=== PATIENT | female | born 1985 | race African-American/Black ===

== ENCOUNTER 2022-02-02 07:30 | Outpatient (RCR) | payer OTHER, SELFPAY ==
--- NOTE | 2021-11-26 16:11 | PT.OIE ---
Current Diagnoses Pain in right knee (11/26/21) Pain in unspecified knee (11/26/21) Visit Care Team Role Provider Type Willa Starr MD Attending Provider Non-Staff Family Provider Primary Care Provider Referring Provider Specialty: Medical Address: [address] [place] [address], [facility] Email: Physical Therapy Initial Evaluation PT-OP-A Visit Information Start: 11/17/21 08:14 Freq: Status: Active Protocol: Document 11/26/21 13:02 AMB (Rec: 11/26/21 13:46 AMB [id number]) Out-Patient Physical Therapy Visit Information Visit Information Visit Type Initial Evaluation Visit Start Time 13:00 Visit Stop Time 13:45 Total Visit Minutes 45 Visit Number 1 PT-OP-B Current Condition Start: 11/17/21 08:14 Freq: Status: Active Protocol: Document 11/26/21 13:02 AMB (Rec: 11/26/21 13:46 AMB [id number]) Current Condition History of Current Condition Onset Date August 2021 History of Current Condition Pain with Running, stairs, squats after a skiing accident where she fell in August Feels like it could give out, swelling - inside of the knee. Has felt catching in the knee. PT-OP-C Subjective Start: 11/17/21 08:14 Freq: Status: Active Protocol: Document 11/26/21 13:00 AMB (Rec: 11/26/21 16:06 AMB [id number]) Patient Questionnaires Lower Extremity Functional Scale LEFS Score 70 LEFS Impairment 1 to 19% Impaired (Score 63-79 ) PT-OP-J Posture/Palpation/Skin Start: 11/17/21 08:14 Freq: Status: Active Protocol: Document 11/26/21 13:00 AMB (Rec: 11/26/21 16:08 AMB [id number]) Palpation Assessment Location One Palpation Location R knee Palpation Findings Edema,Tenderness Palpation Details No tenderness laterally over IT band or centrally over patellar tendon, all tenderness at medial tibiofemoral joint line with mild swelling noticable. PT-OP-K Range of Motion Start: 11/17/21 08:14 Freq: Status: Active Protocol: Document 11/26/21 13:00 AMB (Rec: 11/26/21 16:06 AMB [id number]) Knee Goniometric Range of Motion Knee Right Knee ROM WFL Yes Patient Position Supine Comments no pain with OP into full flexion or extension PT-OP-L Special Tests Start: 11/17/21 08:14 Freq: Status: Active Protocol: Document 11/26/21 13:00 AMB (Rec: 11/26/21 16:06 AMB [id number]) Special Tests Knee Special Tests Rehan Test Comments mild pain and pt subjective feel of clicking Patellar Grind Test Test Results - Posterior Draw Test Results - Anterior Draw Test Results - PT-OP-M Strength Start: 11/17/21 08:14 Freq: Status: Active Protocol: Document 11/26/21 13:00 AMB (Rec: 11/26/21 16:06 AMB [id number]) Hip Strength Hip Manual Muscle Testing Right Flexion (L2) 4 Good Extension (S1) 5 Normal Abduction 4 Good Knee Strength Knee Manual Muscle Testing Right Flexion (S2) 5 Normal Extension (L3) 4 Good PT-OP-Q Treatments Start: 11/17/21 08:14 Freq: Status: Active Protocol: Document 11/26/21 13:00 AMB (Rec: 11/26/21 16:08 AMB [id number]) Therapeutic Exercises Supine Exercises SLR Side right Reps/Minutes 10 Sidelying Exercises hip abduction Side right Reps/Minutes 10 Standing Exercises mini squat Reps/Minutes 10 Comments cues for knee alignment PT-OP-T Assessment and Plan Start: 11/17/21 08:14 Freq: Status: Active Protocol: Document 11/26/21 13:00 AMB (Rec: 11/26/21 16:06 AMB [id number]) Physical Therapy Assessment Rehab Potential Rehabilitation Potential Good Evaluation Complexity Number of Personal Factors/Comorbidities 0 Number of Body Systems Impaired 3 Clinical Presentation at Evaluation Stable Impairments Impairments Functional Activities,Pain, Strength Goals Three Impairment HEP Short Term Goal (STG) Esme will be independent and consistent with a HEP to reduce her knee pain. STG Duration 4 weeks Jail Goal (LTG) Esme will return to her gym workout of running and squatting with resistance without an increase in knee pain. LTG Duration 8 weeks Two Impairment Pain Short Term Goal (STG) Esme will ascend and descend a flight of stairs without knee pain. STG Duration 4 weeks Jail Goal (LTG) Esme will run for 1 mile with knee pain of 2/10 or less over smooth terrain. LTG Duration 8 weeks One Impairment Strength Short Term Goal (STG) Esme will improve her knee strength to 5/5 in both flexion and extension. STG Duration 4 weeks Assessment Summary Assessment Esme attends physical therapy with R medial knee pain s/p ski injury 3 months ago. It was initially swollen , but has slowly been improving. She is still unable to workout in her usual manner (avoiding resistance/ squats/running), and has pain with stairs. She showed weakness in hip flexion, abduction and knee extension. She also had a mildly positive Rehan test. She would benefit from further physical therapy for instruction in appropriate knee stabilization (did ask pt stop performing resistive open chain quad strengthening at the gym for now), and to help manage pain/swelling. 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 Physical Therapy Plan Frequency and Duration Frequency of Treatment 2x/Week Duration of Treatment 3 months Plan of Care Start Date 11/26/21 Plan of Care End Date 02/24/22 Therapeutic Interventions Therapeutic Interventions Aquatic Therapy,Gait Training, Home Exercise Program,Joint Mobilizations,Manual Therapy, Neuromuscular Re-education, Self-Care/Home Management, Therapeutic Activities, Therapeutic Exercises Modalities Cold Pack/Ice Massage,Electric Stimulation,Hot Packs Next Visit Focus/Plan Next Note Type Treatment Note Next Visit Plan How did pt tolerate k-tape? Reassess SLR, abduction, mini squat. Progress closed chain strengthening at hip/knee.
--- NOTE | 2021-11-26 16:11 | PT.OPPOC ---
Physical, Occupational & Speech Therapy At [facility] Current Diagnoses Pain in right knee (11/26/21) Pain in unspecified knee (11/26/21) Visit Care Team Role Provider Type Willa Starr MD Attending Provider Non-Staff Family Provider Primary Care Provider Referring Provider Specialty: Medical Address: [address] [place] [address], [id number] Email: Plan Of Care PT-OP-T Assessment and Plan Start: 11/17/21 08:14 Freq: Status: Active Protocol: Document 11/26/21 13:00 AMB (Rec: 11/26/21 16:06 AMB [id number]) Physical Therapy Assessment Rehab Potential Rehabilitation Potential Good Evaluation Complexity Number of Personal Factors/Comorbidities 0 Number of Body Systems Impaired 3 Clinical Presentation at Evaluation Stable Impairments Impairments Functional Activities,Pain, Strength Goals Three Impairment HEP Short Term Goal (STG) Esme will be independent and consistent with a HEP to reduce her knee pain. STG Duration 4 weeks Blacking Machine Operator Goal (LTG) Esme will return to her gym workout of running and squatting with resistance without an increase in knee pain. LTG Duration 8 weeks Two Impairment Pain Short Term Goal (STG) Esme will ascend and descend a flight of stairs without knee pain. STG Duration 4 weeks Blacking Machine Operator Goal (LTG) Esme will run for 1 mile with knee pain of 2/10 or less over smooth terrain. LTG Duration 8 weeks One Impairment Strength Short Term Goal (STG) Esme will improve her knee strength to 5/5 in both flexion and extension. STG Duration 4 weeks Assessment Summary Assessment Esme attends physical therapy with R medial knee pain s/p ski injury 3 months ago. It was initially swollen , but has slowly been improving. She is still unable to workout in her usual manner (avoiding resistance/ squats/running), and has pain with stairs. She showed weakness in hip flexion, abduction and knee extension. She also had a mildly positive Rehan test. She would benefit from further physical therapy for instruction in appropriate knee stabilization (did ask pt stop performing resistive open chain quad strengthening at the gym for now), and to help manage pain/swelling. 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 Physical Therapy Plan Frequency and Duration Frequency of Treatment 2x/Week Duration of Treatment 3 months Plan of Care Start Date 11/26/21 Plan of Care End Date 02/24/22 Therapeutic Interventions Therapeutic Interventions Aquatic Therapy,Gait Training, Home Exercise Program,Joint Mobilizations,Manual Therapy, Neuromuscular Re-education, Self-Care/Home Management, Therapeutic Activities, Therapeutic Exercises Modalities Cold Pack/Ice Massage,Electric Stimulation,Hot Packs Next Visit Focus/Plan Next Note Type Treatment Note Next Visit Plan How did pt tolerate k-tape? Reassess SLR, abduction, mini squat. Progress closed chain strengthening at hip/knee. Plan of Care Dates Plan of Care Start Date 11/26/21 Plan of Care End Date 02/24/22 Electronically Signed by: Ibis Watt, PT 11/26/21 1783 Please Sign and Return: I have reviewed this Plan of Care and certify that the skilled therapy services above are required to meet the patient?s needs. Physician Signature Date Printed Name and Credentials Clinical Instructor Signature Printed Name and Credentials
--- NOTE | 2021-11-29 16:03 | PT.OTN ---
Current Diagnoses Pain in right knee (11/29/21) Pain in unspecified knee (11/29/21) Physical Therapy Treatment Note PT-OP-A Visit Information Start: 11/17/21 08:14 Freq: Status: Active Protocol: Document 11/29/21 15:17 MA (Rec: 11/29/21 16:03 MA [id number]) Out-Patient Physical Therapy Visit Information Visit Information Visit Type Treatment Note Visit Start Time 15:15 Visit Number 2 Number of DIRECTOR OF RESEARCH AND DEVELOPMENT Visits 1 PT-OP-B Current Condition Start: 11/17/21 08:14 Freq: Status: Active Protocol: Document 11/26/21 13:02 AMB (Rec: 11/26/21 13:46 AMB [id number]) Current Condition History of Current Condition Onset Date August 2021 History of Current Condition Pain with Running, stairs, squats after a skiing accident where she fell in August Feels like it could give out, swelling - inside of the knee. Has felt catching in the knee. PT-OP-C Subjective Start: 11/17/21 08:14 Freq: Status: Active Protocol: Document 11/29/21 15:17 MA (Rec: 11/29/21 16:03 MA [id number]) OP-PT Subjective Patient Comments Patient Comments Pt feels the tape helped a lot last session. PT-OP-J Posture/Palpation/Skin Start: 11/17/21 08:14 Freq: Status: Active Protocol: Document 11/26/21 13:00 AMB (Rec: 11/26/21 16:08 AMB [id number]) Palpation Assessment Location One Palpation Location R knee Palpation Findings Edema,Tenderness Palpation Details No tenderness laterally over IT band or centrally over patellar tendon, all tenderness at medial tibiofemoral joint line with mild swelling noticable. PT-OP-K Range of Motion Start: 11/17/21 08:14 Freq: Status: Active Protocol: Document 11/26/21 13:00 AMB (Rec: 11/26/21 16:06 AMB [id number]) Knee Goniometric Range of Motion Knee Right Knee ROM WFL Yes Patient Position Supine Comments no pain with OP into full flexion or extension PT-OP-L Special Tests Start: 11/17/21 08:14 Freq: Status: Active Protocol: Document 11/26/21 13:00 AMB (Rec: 11/26/21 16:06 AMB [id number]) Special Tests Knee Special Tests Rehan Test Comments mild pain and pt subjective feel of clicking Patellar Grind Test Test Results - Posterior Draw Test Results - Anterior Draw Test Results - PT-OP-M Strength Start: 11/17/21 08:14 Freq: Status: Active Protocol: Document 11/26/21 13:00 AMB (Rec: 11/26/21 16:06 AMB [id number]) Hip Strength Hip Manual Muscle Testing Right Flexion (L2) 4 Good Extension (S1) 5 Normal Abduction 4 Good Knee Strength Knee Manual Muscle Testing Right Flexion (S2) 5 Normal Extension (L3) 4 Good PT-OP-Q Treatments Start: 11/17/21 08:14 Freq: Status: Active Protocol: Document 11/29/21 15:17 MA (Rec: 11/29/21 16:03 MA [id number]) Cardio Equipment Bicycle (Upright) Duration (Minutes) 5 Resistance 5 Seat Position 5 Therapeutic Exercises Supine Exercises Bridges Side bilateral Reps/Minutes 2x 12x5SH Comments added to HEP SLR Side bilateral Reps/Minutes 2x12 Sidelying Exercises Clamshell Sidelying Exercise Name hip ER Side bilateral Reps/Minutes 2x12 Comments added to HEP hip abduction Side bilateral Reps/Minutes 2x12 Standing Exercises Stretch Standing Exercise Name gastroc stretch in staggered stance Side bilateral Reps/Minutes x30 ea mini squat Reps/Minutes 10 Comments cues for knee alignment Manual Therapy Treatment Taping R Knee Body Location R knee Treatment Focus stability Type of Tape ktape Skin Inspection intact Comments 2 I strips medial and lateral starting from tib tuberosity PT-OP-T Assessment and Plan Start: 11/17/21 08:14 Freq: Status: Active Protocol: Document 11/29/21 15:17 MA (Rec: 11/29/21 16:03 MA [id number]) Physical Therapy Assessment Goals Three Impairment HEP Short Term Goal (STG) Esme will be independent and consistent with a HEP to reduce her knee pain. STG Duration 4 weeks Usp Goal (LTG) Esme will return to her gym workout of running and squatting with resistance without an increase in knee pain. LTG Duration 8 weeks Two Impairment Pain Short Term Goal (STG) Esme will ascend and descend a flight of stairs without knee pain. STG Duration 4 weeks Usp Goal (LTG) Esme will run for 1 mile with knee pain of 2/10 or less over smooth terrain. LTG Duration 8 weeks One Impairment Strength Short Term Goal (STG) Esme will improve her knee strength to 5/5 in both flexion and extension. STG Duration 4 weeks Assessment Summary Assessment Esme reports feeling more stable over the weekend with Ktape donned. Retaped pt and added in bridges and hip ER ( clamshells) to HEP. Pt shows weakness through benito hip abd and ER and requires rest breaks after 5-8 reps of exercises due to fatigue. She has no swelling today around medial knee. Educated pt on ice massage to decrease swelling and pain when at home . Physical Therapy Plan Frequency and Duration Frequency of Treatment 2x/Week Duration of Treatment 3 months Plan of Care Start Date 11/26/21 Plan of Care End Date 02/24/22 Therapeutic Interventions Therapeutic Interventions Aquatic Therapy,Gait Training, Home Exercise Program,Joint Mobilizations,Manual Therapy, Neuromuscular Re-education, Self-Care/Home Management, Therapeutic Activities, Therapeutic Exercises Modalities Cold Pack/Ice Massage,Electric Stimulation,Hot Packs Next Visit Focus/Plan Next Note Type Treatment Note Next Visit Plan Continue with ktape. Reivew HEP: SLR, abduction, clamshells, bridges, mini squat. Progress closed chain strengthening at hip/knee.
--- NOTE | 2021-12-02 14:57 | PT-OP ANOTE ---
Called patient at 3pm for her scheduled apt time at 2:30 and she was on her way to the appt, pt stated she had her appt time written down as 3:15. Confirmed appointment times for following appointments with patient and all future times were correct.
--- NOTE | 2021-12-06 16:02 | PT.OTN ---
Current Diagnoses Pain in right knee (12/06/21) Pain in unspecified knee (12/06/21) Physical Therapy Treatment Note PT-OP-A Visit Information Start: 11/17/21 08:14 Freq: Status: Active Protocol: Document 12/06/21 15:21 MA (Rec: 12/06/21 16:01 MA [id number]) Out-Patient Physical Therapy Visit Information Visit Information Visit Type Treatment Note Visit Start Time 15:20 Visit Stop Time 16:00 Total Visit Minutes 40 Visit Number 3 Number of STEWARD RACETRACK Visits 2 PT-OP-B Current Condition Start: 11/17/21 08:14 Freq: Status: Active Protocol: Document 11/26/21 13:02 AMB (Rec: 11/26/21 13:46 AMB [id number]) Current Condition History of Current Condition Onset Date August 2021 History of Current Condition Pain with Running, stairs, squats after a skiing accident where she fell in August Feels like it could give out, swelling - inside of the knee. Has felt catching in the knee. PT-OP-C Subjective Start: 11/17/21 08:14 Freq: Status: Active Protocol: Document 12/06/21 15:21 MA (Rec: 12/06/21 16:01 MA [id number]) OP-PT Subjective Patient Comments Patient Comments Pt has been having nerve pain down lateral RLE. PT-OP-J Posture/Palpation/Skin Start: 11/17/21 08:14 Freq: Status: Active Protocol: Document 11/26/21 13:00 AMB (Rec: 11/26/21 16:08 AMB [id number]) Palpation Assessment Location One Palpation Location R knee Palpation Findings Edema,Tenderness Palpation Details No tenderness laterally over IT band or centrally over patellar tendon, all tenderness at medial tibiofemoral joint line with mild swelling noticable. PT-OP-K Range of Motion Start: 11/17/21 08:14 Freq: Status: Active Protocol: Document 11/26/21 13:00 AMB (Rec: 11/26/21 16:06 AMB [id number]) Knee Goniometric Range of Motion Knee Right Knee ROM WFL Yes Patient Position Supine Comments no pain with OP into full flexion or extension PT-OP-L Special Tests Start: 11/17/21 08:14 Freq: Status: Active Protocol: Document 11/26/21 13:00 AMB (Rec: 11/26/21 16:06 AMB [id number]) Special Tests Knee Special Tests Rehan Test Comments mild pain and pt subjective feel of clicking Patellar Grind Test Test Results - Posterior Draw Test Results - Anterior Draw Test Results - PT-OP-M Strength Start: 11/17/21 08:14 Freq: Status: Active Protocol: Document 11/26/21 13:00 AMB (Rec: 11/26/21 16:06 AMB [id number]) Hip Strength Hip Manual Muscle Testing Right Flexion (L2) 4 Good Extension (S1) 5 Normal Abduction 4 Good Knee Strength Knee Manual Muscle Testing Right Flexion (S2) 5 Normal Extension (L3) 4 Good PT-OP-Q Treatments Start: 11/17/21 08:14 Freq: Status: Active Protocol: Document 12/06/21 15:21 MA (Rec: 12/06/21 16:01 MA [id number]) Cardio Equipment Bicycle (Upright) Duration (Minutes) 5 Resistance 5 Seat Position 5 Therapeutic Exercises Supine Exercises Stretch Supine Exercise Name Supine and seated Side bilateral Reps/Minutes x30 sec ea Comments pain felt when supine, no pain in seated Bridges Side bilateral Reps/Minutes 12x5SH Comments added to HEP SLR Side bilateral Reps/Minutes 2x12 Sidelying Exercises Clamshell Sidelying Exercise Name hip ER Side bilateral Reps/Minutes 2x12 Comments added to HEP hip abduction Side bilateral Reps/Minutes 2x12 Standing Exercises mini squat Reps/Minutes 10 Comments cues for knee alignment Manual Therapy Treatment Taping R Knee Body Location R knee Treatment Focus stability Type of Tape ktape Skin Inspection intact Comments 2 I strips medial and lateral starting from tib tuberosity - 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 PT-OP-R Modalities Start: 11/17/21 08:14 Freq: Status: Active Protocol: Document 12/06/21 15:21 MA (Rec: 12/06/21 16:02 MA [id number]) Hot Pack/Cold Pack Treatment Ice Massage Location R medial Knee Patient Position Supine Treatment Duration (minutes) 5 Patient Tolerance Good Comments Instructed pt to perform at home as needed for swelling PT-OP-T Assessment and Plan Start: 11/17/21 08:14 Freq: Status: Active Protocol: Document 12/06/21 15:21 MA (Rec: 12/06/21 16:01 MA [id number]) Physical Therapy Assessment Goals Three Impairment HEP Short Term Goal (STG) Esme will be independent and consistent with a HEP to reduce her knee pain. STG Duration 4 weeks [facility] Goal (LTG) Esme will return to her gym workout of running and squatting with resistance without an increase in knee pain. LTG Duration 8 weeks Two Impairment Pain Short Term Goal (STG) Esme will ascend and descend a flight of stairs without knee pain. STG Duration 4 weeks Ciaio Counter Molder Goal (LTG) Esme will run for 1 mile with knee pain of 2/10 or less over smooth terrain. LTG Duration 8 weeks One Impairment Strength Short Term Goal (STG) Esme will improve her knee strength to 5/5 in both flexion and extension. STG Duration 4 weeks Assessment Summary Assessment Esme continues to fatigue during SL hip abd and ER exercises and requires cues for proper form today. Added in piriformis stretch as pt has been having sciatic pain after hip strengthening exercises. 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 Physical Therapy Plan Frequency and Duration Frequency of Treatment 2x/Week Duration of Treatment 3 months Plan of Care Start Date 11/26/21 Plan of Care End Date 02/24/22 Therapeutic Interventions Therapeutic Interventions Aquatic Therapy,Gait Training, Home Exercise Program,Joint Mobilizations,Manual Therapy, Neuromuscular Re-education, Self-Care/Home Management, Therapeutic Activities, Therapeutic Exercises Modalities Cold Pack/Ice Massage,Electric Stimulation,Hot Packs Next Visit Focus/Plan Next Note Type Treatment Note Next Visit Plan Assess RLE nerve pain after new HEP stretch. Continue with ktape. Reivew HEP: SLR, abduction, clamshells, bridges , mini squat, piriformis stretch. Progress closed chain strengthening at hip/ knee.
--- NOTE | 2021-12-09 14:17 | PT.OTN ---
Current Diagnoses Pain in right knee (12/09/21) Pain in unspecified knee (12/09/21) Physical Therapy Treatment Note PT-OP-A Visit Information Start: 11/17/21 08:14 Freq: Status: Active Protocol: Document 12/09/21 13:45 AMB (Rec: 12/10/21 14:17 AMB [id number]) Out-Patient Physical Therapy Visit Information Visit Information Visit Type Treatment Note Visit Start Time 13:45 Visit Stop Time 14:30 Total Visit Minutes 45 Visit Number 4 PT-OP-B Current Condition Start: 11/17/21 08:14 Freq: Status: Active Protocol: Document 11/26/21 13:02 AMB (Rec: 11/26/21 13:46 AMB [id number]) Current Condition History of Current Condition Onset Date August 2021 History of Current Condition Pain with Running, stairs, squats after a skiing accident where she fell in August Feels like it could give out, swelling - inside of the knee. Has felt catching in the knee. PT-OP-C Subjective Start: 11/17/21 08:14 Freq: Status: Active Protocol: Document 12/09/21 13:45 AMB (Rec: 12/10/21 14:17 AMB [id number]) OP-PT Subjective Patient Comments Patient Comments Pt notes back issues, she has not been running so knee is feeling better, she did order the kinesiotape. PT-OP-J Posture/Palpation/Skin Start: 11/17/21 08:14 Freq: Status: Active Protocol: Document 11/26/21 13:00 AMB (Rec: 11/26/21 16:08 AMB [id number]) Palpation Assessment Location One Palpation Location R knee Palpation Findings Edema,Tenderness Palpation Details No tenderness laterally over IT band or centrally over patellar tendon, all tenderness at medial tibiofemoral joint line with mild swelling noticable. PT-OP-K Range of Motion Start: 11/17/21 08:14 Freq: Status: Active Protocol: Document 11/26/21 13:00 AMB (Rec: 11/26/21 16:06 AMB [id number]) Knee Goniometric Range of Motion Knee Right Knee ROM WFL Yes Patient Position Supine Comments no pain with OP into full flexion or extension PT-OP-L Special Tests Start: 11/17/21 08:14 Freq: Status: Active Protocol: Document 11/26/21 13:00 AMB (Rec: 11/26/21 16:06 AMB [id number]) Special Tests Knee Special Tests Rehan Test Comments mild pain and pt subjective feel of clicking Patellar Grind Test Test Results - Posterior Draw Test Results - Anterior Draw Test Results - PT-OP-M Strength Start: 11/17/21 08:14 Freq: Status: Active Protocol: Document 11/26/21 13:00 AMB (Rec: 11/26/21 16:06 AMB [id number]) Hip Strength Hip Manual Muscle Testing Right Flexion (L2) 4 Good Extension (S1) 5 Normal Abduction 4 Good Knee Strength Knee Manual Muscle Testing Right Flexion (S2) 5 Normal Extension (L3) 4 Good PT-OP-Q Treatments Start: 11/17/21 08:14 Freq: Status: Active Protocol: Document 12/09/21 13:45 AMB (Rec: 12/10/21 14:17 AMB [id number]) Cardio Equipment Bicycle (Upright) Duration (Minutes) 5 Resistance 5 Seat Position 5 Therapeutic Exercises Sidelying Exercises Clamshell Sidelying Exercise Name hip ER Side bilateral Reps/Minutes 2x12 Comments reviewed form, trying to avoid extremes of lumbar lordosis Sitting Exercises forward lumbar stretch Reps/Minutes 30x3 Standing Exercises mini squat Reps/Minutes 10 Comments cues for pelvic alignment Other Exercises fire hydrant Reps/Minutes 10 Comments cue to avoid lumbar rotation, work on stabilization with hip ER cat cow Reps/Minutes 10 PT-OP-R Modalities Start: 11/17/21 08:14 Freq: Status: Active Protocol: Document 12/06/21 15:21 MA (Rec: 12/06/21 16:02 MA [id number]) Hot Pack/Cold Pack Treatment Ice Massage Location R medial Knee Patient Position Supine Treatment Duration (minutes) 5 Patient Tolerance Good Comments Instructed pt to perform at home as needed for swelling PT-OP-T Assessment and Plan Start: 11/17/21 08:14 Freq: Status: Active Protocol: Document 12/09/21 13:45 AMB (Rec: 12/10/21 14:17 AMB [id number]) Physical Therapy Assessment Goals Three Impairment HEP Short Term Goal (STG) Esme will be independent and consistent with a HEP to reduce her knee pain. STG Duration 4 weeks Keypuncher Goal (LTG) Esme will return to her gym workout of running and squatting with resistance without an increase in knee pain. LTG Duration 8 weeks Two Impairment Pain Short Term Goal (STG) Esme will ascend and descend a flight of stairs without knee pain. STG Duration 4 weeks Keypuncher Goal (LTG) Esme will run for 1 mile with knee pain of 2/10 or less over smooth terrain. LTG Duration 8 weeks One Impairment Strength Short Term Goal (STG) Esme will improve her knee strength to 5/5 in both flexion and extension. STG Duration 4 weeks Assessment Summary Assessment Esme has a hard habit of being in anterior pelvic tilt, even when doing her clamshells, that is not helping with her knee and is likely contributing to her back pain. Worked extensively today on getting into a neutral alignment for return to squats. Pt will be on detachment for next 3 weeks. Physical Therapy Plan Frequency and Duration Frequency of Treatment 2x/Week Duration of Treatment 3 months Plan of Care Start Date 11/26/21 Plan of Care End Date 02/24/22 Next Visit Focus/Plan Next Note Type Treatment Note Next Visit Plan Assess RLE nerve pain after new HEP stretch. Continue with ktape. Reivew HEP: SLR, abduction, clamshells, bridges , mini squat, piriformis stretch. Progress closed chain strengthening at hip/ knee.
--- NOTE | 2022-01-05 15:53 | PT.OTN ---
Current Diagnoses Pain in right knee (01/05/22) Pain in unspecified knee (01/05/22) Physical Therapy Treatment Note PT-OP-A Visit Information Start: 11/17/21 08:14 Freq: Status: Active Protocol: Document 01/05/22 07:30 AMB (Rec: 01/05/22 15:53 AMB [id number]) Out-Patient Physical Therapy Visit Information Visit Information Visit Type Treatment Note Visit Start Time 07:30 Visit Stop Time 08:15 Total Visit Minutes 45 Visit Number 5 PT-OP-B Current Condition Start: 11/17/21 08:14 Freq: Status: Active Protocol: Document 11/26/21 13:02 AMB (Rec: 11/26/21 13:46 AMB [id number]) Current Condition History of Current Condition Onset Date August 2021 History of Current Condition Pain with Running, stairs, squats after a skiing accident where she fell in August Feels like it could give out, swelling - inside of the knee. Has felt catching in the knee. PT-OP-C Subjective Start: 11/17/21 08:14 Freq: Status: Active Protocol: Document 01/05/22 07:30 AMB (Rec: 01/05/22 15:53 AMB [id number]) OP-PT Subjective Patient Comments Patient Comments Pt returns and has been running about a mile at a light jog without knee pain, denies any back pain. Has been taping her knee. PT-OP-J Posture/Palpation/Skin Start: 11/17/21 08:14 Freq: Status: Active Protocol: Document 11/26/21 13:00 AMB (Rec: 11/26/21 16:08 AMB [id number]) Palpation Assessment Location One Palpation Location R knee Palpation Findings Edema,Tenderness Palpation Details No tenderness laterally over IT band or centrally over patellar tendon, all tenderness at medial tibiofemoral joint line with mild swelling noticable. PT-OP-K Range of Motion Start: 11/17/21 08:14 Freq: Status: Active Protocol: Document 11/26/21 13:00 AMB (Rec: 11/26/21 16:06 AMB [id number]) Knee Goniometric Range of Motion Knee Right Knee ROM WFL Yes Patient Position Supine Comments no pain with OP into full flexion or extension PT-OP-L Special Tests Start: 11/17/21 08:14 Freq: Status: Active Protocol: Document 11/26/21 13:00 AMB (Rec: 11/26/21 16:06 AMB [id number]) Special Tests Knee Special Tests Rehan Test Comments mild pain and pt subjective feel of clicking Patellar Grind Test Test Results - Posterior Draw Test Results - Anterior Draw Test Results - PT-OP-M Strength Start: 11/17/21 08:14 Freq: Status: Active Protocol: Document 11/26/21 13:00 AMB (Rec: 11/26/21 16:06 AMB [id number]) Hip Strength Hip Manual Muscle Testing Right Flexion (L2) 4 Good Extension (S1) 5 Normal Abduction 4 Good Knee Strength Knee Manual Muscle Testing Right Flexion (S2) 5 Normal Extension (L3) 4 Good PT-OP-Q Treatments Start: 11/17/21 08:14 Freq: Status: Active Protocol: Document 01/05/22 07:30 AMB (Rec: 01/05/22 15:53 AMB [id number]) Therapeutic Exercises Supine Exercises Bridges Side right Reps/Minutes 12x5SH SLR Side bilateral Reps/Minutes 2x12 Sidelying Exercises Clamshell Sidelying Exercise Name hip ER Side bilateral Reps/Minutes 2x12 Comments reviewed form, trying to avoid extremes of lumbar lordosis Standing Exercises lunges Reps/Minutes 2x10 mini squat Reps/Minutes 2x10 Comments cues for pelvic alignment Manual Therapy Treatment Soft Tissue Mobilization medial knee Body Location R knee Mobilization Type Cross-Friction,Myofascial Release,Strumming Intensity/Depth Moderate Body Position Supine PT-OP-R Modalities Start: 11/17/21 08:14 Freq: Status: Active Protocol: Document 12/06/21 15:21 MA (Rec: 12/06/21 16:02 MA [id number]) Hot Pack/Cold Pack Treatment Ice Massage Location R medial Knee Patient Position Supine Treatment Duration (minutes) 5 Patient Tolerance Good Comments Instructed pt to perform at home as needed for swelling PT-OP-T Assessment and Plan Start: 11/17/21 08:14 Freq: Status: Active Protocol: Document 01/05/22 07:30 AMB (Rec: 01/05/22 15:53 AMB [id number]) Physical Therapy Assessment Goals Three Impairment HEP Short Term Goal (STG) Esme will be independent and consistent with a HEP to reduce her knee pain. STG Duration 4 weeks Plant Guard Goal (LTG) Esme will return to her gym workout of running and squatting with resistance without an increase in knee pain. LTG Duration 8 weeks Two Impairment Pain Short Term Goal (STG) Esme will ascend and descend a flight of stairs without knee pain. STG Duration 4 weeks Plant Guard Goal (LTG) Esme will run for 1 mile with knee pain of 2/10 or less over smooth terrain. LTG Duration 8 weeks One Impairment Strength Short Term Goal (STG) Esme will improve her knee strength to 5/5 in both flexion and extension. STG Duration 4 weeks Assessment Summary Assessment Denied any back symptoms, but did have knee symptoms with squats and lunges, especially lateral lunges. Pt tends to squat with a very externally rotated stance and has more pain with a more neutral stance. Physical Therapy Plan Next Visit Focus/Plan Next Note Type Treatment Note Next Visit Plan Continue to work on medial knee stability, working on alignment/form with squat, progressing into lunges as tolerated.
--- NOTE | 2022-01-10 16:11 | PT.OTN ---
Current Diagnoses Pain in right knee (01/10/22) Pain in unspecified knee (01/10/22) Physical Therapy Treatment Note PT-OP-A Visit Information Start: 11/17/21 08:14 Freq: Status: Active Protocol: Document 01/10/22 15:28 MA (Rec: 01/10/22 16:11 MA [id number]) Out-Patient Physical Therapy Visit Information Visit Information Visit Type Treatment Note Visit Start Time 15:25 Visit Stop Time 16:05 Total Visit Minutes 40 Visit Number 6 Number of CARBON BLOCKS PRESS OPERATOR Visits 1 PT-OP-B Current Condition Start: 11/17/21 08:14 Freq: Status: Active Protocol: Document 11/26/21 13:02 AMB (Rec: 11/26/21 13:46 AMB [id number]) Current Condition History of Current Condition Onset Date August 2021 History of Current Condition Pain with Running, stairs, squats after a skiing accident where she fell in August Feels like it could give out, swelling - inside of the knee. Has felt catching in the knee. PT-OP-C Subjective Start: 11/17/21 08:14 Freq: Status: Active Protocol: Document 01/10/22 15:28 MA (Rec: 01/10/22 16:11 MA [id number]) OP-PT Subjective Patient Comments Patient Comments Pt has some 'popping' in R knee when she goes below 90 degrees in squats. She reports continued swelling. PT-OP-J Posture/Palpation/Skin Start: 11/17/21 08:14 Freq: Status: Active Protocol: Document 11/26/21 13:00 AMB (Rec: 11/26/21 16:08 AMB [id number]) Palpation Assessment Location One Palpation Location R knee Palpation Findings Edema,Tenderness Palpation Details No tenderness laterally over IT band or centrally over patellar tendon, all tenderness at medial tibiofemoral joint line with mild swelling noticable. PT-OP-K Range of Motion Start: 11/17/21 08:14 Freq: Status: Active Protocol: Document 11/26/21 13:00 AMB (Rec: 11/26/21 16:06 AMB [id number]) Knee Goniometric Range of Motion Knee Right Knee ROM WFL Yes Patient Position Supine Comments no pain with OP into full flexion or extension PT-OP-L Special Tests Start: 11/17/21 08:14 Freq: Status: Active Protocol: Document 11/26/21 13:00 AMB (Rec: 11/26/21 16:06 AMB [id number]) Special Tests Knee Special Tests Rehan Test Comments mild pain and pt subjective feel of clicking Patellar Grind Test Test Results - Posterior Draw Test Results - Anterior Draw Test Results - PT-OP-M Strength Start: 11/17/21 08:14 Freq: Status: Active Protocol: Document 11/26/21 13:00 AMB (Rec: 11/26/21 16:06 AMB [id number]) Hip Strength Hip Manual Muscle Testing Right Flexion (L2) 4 Good Extension (S1) 5 Normal Abduction 4 Good Knee Strength Knee Manual Muscle Testing Right Flexion (S2) 5 Normal Extension (L3) 4 Good PT-OP-Q Treatments Start: 11/17/21 08:14 Freq: Status: Active Protocol: Document 01/10/22 15:28 MA (Rec: 01/10/22 16:11 MA [id number]) Cardio Equipment Bicycle (Upright) Duration (Minutes) 5 Resistance 5 Seat Position 5 Therapeutic Exercises Supine Exercises Hamstring Stretch Side bilateral Reps/Minutes 1 x 30 sec ea Bridges Side right Reps/Minutes 12x5SH SLR Side bilateral Reps/Minutes 2x10 Sidelying Exercises Clamshell Sidelying Exercise Name hip ER Side bilateral Reps/Minutes 2x10 Comments reviewed form, trying to avoid extremes of lumbar lordosis hip abduction Side bilateral Reps/Minutes 2x10 Standing Exercises lunges Side bilateral Reps/Minutes 2x10 mini squat Reps/Minutes 2x10 Comments cues for pelvic and knee alignment Manual Therapy Treatment Soft Tissue Mobilization medial knee Body Location R knee Mobilization Type Cross-Friction,Myofascial Release,Strumming Intensity/Depth Moderate Body Position Supine Taping R Knee Body Location R knee Treatment Focus stability Type of Tape ktape Skin Inspection intact Comments 2 I strips medial and lateral starting from tib tuberosity - 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 PT-OP-R Modalities Start: 11/17/21 08:14 Freq: Status: Active Protocol: Document 12/06/21 15:21 MA (Rec: 12/06/21 16:02 MA [id number]) Hot Pack/Cold Pack Treatment Ice Massage Location R medial Knee Patient Position Supine Treatment Duration (minutes) 5 Patient Tolerance Good Comments Instructed pt to perform at home as needed for swelling PT-OP-T Assessment and Plan Start: 11/17/21 08:14 Freq: Status: Active Protocol: Document 01/10/22 15:28 MA (Rec: 01/10/22 16:11 MA [id number]) Physical Therapy Assessment Goals Three Impairment HEP Short Term Goal (STG) Esme will be independent and consistent with a HEP to reduce her knee pain. STG Duration 4 weeks Pairer Substandard Goal (LTG) Esme will return to her gym workout of running and squatting with resistance without an increase in knee pain. LTG Duration 8 weeks Two Impairment Pain Short Term Goal (STG) Esme will ascend and descend a flight of stairs without knee pain. STG Duration 4 weeks Skilled Nursing Goal (LTG) Esme will run for 1 mile with knee pain of 2/10 or less over smooth terrain. LTG Duration 8 weeks One Impairment Strength Short Term Goal (STG) Esme will improve her knee strength to 5/5 in both flexion and extension. STG Duration 4 weeks Assessment Summary Assessment Esme continues to fatigue with hip ER and ABD exercises. She has no knee pain when exercising in non weight bearing positions such as supine and SL but has pain and audible popping in R knee with squats and lunges. Pain and popping decrease when in ER for sumo squats. Discussed getting an MRI referral since pt continues to have minor medial knee swelling and pain since initial injury 6 months ago. Physical Therapy Plan Frequency and Duration Frequency of Treatment 2x/Week Duration of Treatment 3 months Plan of Care Start Date 11/26/21 Plan of Care End Date 02/24/22 Therapeutic Interventions Therapeutic Interventions Aquatic Therapy,Gait Training, Home Exercise Program,Joint Mobilizations,Manual Therapy, Neuromuscular Re-education, Self-Care/Home Management, Therapeutic Activities, Therapeutic Exercises Modalities Cold Pack/Ice Massage,Electric Stimulation,Hot Packs Next Visit Focus/Plan Next Note Type Treatment Note Next Visit Plan Continue to work on medial knee stability, working on alignment/form with squat, progressing into lunges as tolerated.
--- NOTE | 2022-01-12 16:49 | PT.OTN ---
Current Diagnoses Pain in right knee (01/12/22) Pain in unspecified knee (01/12/22) Physical Therapy Treatment Note PT-OP-A Visit Information Start: 11/17/21 08:14 Freq: Status: Active Protocol: Document 01/12/22 15:52 MA (Rec: 01/12/22 16:48 MA [id number]) Out-Patient Physical Therapy Visit Information Visit Information Visit Type Treatment Note Visit Start Time 16:00 Visit Stop Time 16:40 Total Visit Minutes 40 Visit Number 7 Number of VEHICLE BODY BUILDER Visits 2 PT-OP-B Current Condition Start: 11/17/21 08:14 Freq: Status: Active Protocol: Document 11/26/21 13:02 AMB (Rec: 11/26/21 13:46 AMB [id number]) Current Condition History of Current Condition Onset Date August 2021 History of Current Condition Pain with Running, stairs, squats after a skiing accident where she fell in August Feels like it could give out, swelling - inside of the knee. Has felt catching in the knee. PT-OP-C Subjective Start: 11/17/21 08:14 Freq: Status: Active Protocol: Document 01/12/22 15:52 MA (Rec: 01/12/22 16:48 MA [id number]) OP-PT Subjective Patient Comments Patient Comments Pt has requested an MRI through her Dr's online portal but has not heard back. PT-OP-J Posture/Palpation/Skin Start: 11/17/21 08:14 Freq: Status: Active Protocol: Document 11/26/21 13:00 AMB (Rec: 11/26/21 16:08 AMB [id number]) Palpation Assessment Location One Palpation Location R knee Palpation Findings Edema,Tenderness Palpation Details No tenderness laterally over IT band or centrally over patellar tendon, all tenderness at medial tibiofemoral joint line with mild swelling noticable. PT-OP-K Range of Motion Start: 11/17/21 08:14 Freq: Status: Active Protocol: Document 11/26/21 13:00 AMB (Rec: 11/26/21 16:06 AMB [id number]) Knee Goniometric Range of Motion Knee Right Knee ROM WFL Yes Patient Position Supine Comments no pain with OP into full flexion or extension PT-OP-L Special Tests Start: 11/17/21 08:14 Freq: Status: Active Protocol: Document 11/26/21 13:00 AMB (Rec: 11/26/21 16:06 AMB [id number]) Special Tests Knee Special Tests Rehan Test Comments mild pain and pt subjective feel of clicking Patellar Grind Test Test Results - Posterior Draw Test Results - Anterior Draw Test Results - PT-OP-M Strength Start: 11/17/21 08:14 Freq: Status: Active Protocol: Document 11/26/21 13:00 AMB (Rec: 11/26/21 16:06 AMB [id number]) Hip Strength Hip Manual Muscle Testing Right Flexion (L2) 4 Good Extension (S1) 5 Normal Abduction 4 Good Knee Strength Knee Manual Muscle Testing Right Flexion (S2) 5 Normal Extension (L3) 4 Good PT-OP-Q Treatments Start: 11/17/21 08:14 Freq: Status: Active Protocol: Document 01/12/22 15:52 MA (Rec: 01/12/22 16:48 MA [id number]) Cardio Equipment Bicycle (Upright) Duration (Minutes) 5 Resistance 8 Seat Position 5 Therapeutic Exercises Supine Exercises Bridges Side bilateral Reps/Minutes 12x5SH SLR Side bilateral Reps/Minutes 2x12 Sidelying Exercises Clamshell Sidelying Exercise Name hip ER Side bilateral Reps/Minutes 2x12 Comments reviewed form, trying to avoid extremes of lumbar lordosis Standing Exercises Hip Ext Side bilateral Reps/Minutes 2x10 Comments cues to aovid excessive lumbar ext Hip ABD Standing Exercise Name 1. standing abd 2. lateral band walk Side bilateral Reps/Minutes 2x10 mini squat Reps/Minutes x10 Comments cues for pelvic and knee alignment Manual Therapy Treatment Taping R Knee Body Location R knee Treatment Focus stability Type of Tape ktape Skin Inspection intact Comments 2 I strips medial and lateral starting from tib tuberosity - 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 PT-OP-R Modalities Start: 11/17/21 08:14 Freq: Status: Active Protocol: Document 01/12/22 15:52 MA (Rec: 01/12/22 16:49 MA [id number]) Hot Pack/Cold Pack Treatment Ice Massage Location R medial Knee Patient Position Supine Treatment Duration (minutes) 5 Patient Tolerance Good Comments Instructed pt to perform at home as needed for swelling PT-OP-T Assessment and Plan Start: 11/17/21 08:14 Freq: Status: Active Protocol: Document 01/12/22 15:52 MA (Rec: 01/12/22 16:48 MA [id number]) Physical Therapy Assessment Goals Three Impairment HEP Short Term Goal (STG) Esme will be independent and consistent with a HEP to reduce her knee pain. STG Duration 4 weeks Jail Goal (LTG) Esme will return to her gym workout of running and squatting with resistance without an increase in knee pain. LTG Duration 8 weeks Two Impairment Pain Short Term Goal (STG) Esme will ascend and descend a flight of stairs without knee pain. STG Duration 4 weeks Jail Goal (LTG) Esme will run for 1 mile with knee pain of 2/10 or less over smooth terrain. LTG Duration 8 weeks One Impairment Strength Short Term Goal (STG) Esme will improve her knee strength to 5/5 in both flexion and extension. STG Duration 4 weeks Assessment Summary Assessment Progressed Esme to standing hip strengthening exercises with pt having no increase in pain. She does not feel any ' popping' or discomfort in R knee during squats this session and has no swelling in medial R knee today. Pt requires minor cues during SLR for sustaining quad contraction. Will progress with lunges, squats, and standing hip strengthening next session. Physical Therapy Plan Frequency and Duration Frequency of Treatment 2x/Week Duration of Treatment 3 months Plan of Care Start Date 11/26/21 Plan of Care End Date 02/24/22 Therapeutic Interventions Therapeutic Interventions Aquatic Therapy,Gait Training, Home Exercise Program,Joint Mobilizations,Manual Therapy, Neuromuscular Re-education, Self-Care/Home Management, Therapeutic Activities, Therapeutic Exercises Modalities Cold Pack/Ice Massage,Electric Stimulation,Hot Packs Next Visit Focus/Plan Next Note Type Treatment Note Next Visit Plan Assess how pt's knee felt with open chain exercises last session. continue to work on medial knee stability, working on alignment/form with squat, progressing into lunges as tolerated.
--- NOTE | 2022-01-19 17:36 | PT.OTN ---
Current Diagnoses Pain in right knee (01/19/22) Pain in unspecified knee (01/19/22) Physical Therapy Treatment Note PT-OP-A Visit Information Start: 11/17/21 08:14 Freq: Status: Active Protocol: Document 01/19/22 16:55 MA (Rec: 01/19/22 17:36 MA [id number]) Out-Patient Physical Therapy Visit Information Visit Information Visit Type Treatment Note Visit Start Time 16:52 Visit Stop Time 17:32 Total Visit Minutes 40 Visit Number 8 Number of COOK BOX FILLER Visits 3 PT-OP-B Current Condition Start: 11/17/21 08:14 Freq: Status: Active Protocol: Document 11/26/21 13:02 AMB (Rec: 11/26/21 13:46 AMB [id number]) Current Condition History of Current Condition Onset Date August 2021 History of Current Condition Pain with Running, stairs, squats after a skiing accident where she fell in August Feels like it could give out, swelling - inside of the knee. Has felt catching in the knee. PT-OP-C Subjective Start: 11/17/21 08:14 Freq: Status: Active Protocol: Document 01/19/22 16:55 MA (Rec: 01/19/22 17:36 MA [id number]) OP-PT Subjective Patient Comments Patient Comments [employer] patient portal has been down and pt has been unable to check on MRI status. Pt has not had pain since Monday when she walked all around [place]. Pt sees on January 28 and will f/u on referral for MRI. PT-OP-J Posture/Palpation/Skin Start: 11/17/21 08:14 Freq: Status: Active Protocol: Document 11/26/21 13:00 AMB (Rec: 11/26/21 16:08 AMB [id number]) Palpation Assessment Location One Palpation Location R knee Palpation Findings Edema,Tenderness Palpation Details No tenderness laterally over IT band or centrally over patellar tendon, all tenderness at medial tibiofemoral joint line with mild swelling noticable. PT-OP-K Range of Motion Start: 11/17/21 08:14 Freq: Status: Active Protocol: Document 11/26/21 13:00 AMB (Rec: 11/26/21 16:06 AMB [id number]) Knee Goniometric Range of Motion Knee Right Knee ROM WFL Yes Patient Position Supine Comments no pain with OP into full flexion or extension PT-OP-L Special Tests Start: 11/17/21 08:14 Freq: Status: Active Protocol: Document 11/26/21 13:00 AMB (Rec: 11/26/21 16:06 AMB [id number]) Special Tests Knee Special Tests Rehan Test Comments mild pain and pt subjective feel of clicking Patellar Grind Test Test Results - Posterior Draw Test Results - Anterior Draw Test Results - PT-OP-M Strength Start: 11/17/21 08:14 Freq: Status: Active Protocol: Document 11/26/21 13:00 AMB (Rec: 11/26/21 16:06 AMB [id number]) Hip Strength Hip Manual Muscle Testing Right Flexion (L2) 4 Good Extension (S1) 5 Normal Abduction 4 Good Knee Strength Knee Manual Muscle Testing Right Flexion (S2) 5 Normal Extension (L3) 4 Good PT-OP-Q Treatments Start: 11/17/21 08:14 Freq: Status: Active Protocol: Document 01/19/22 16:55 MA (Rec: 01/19/22 17:36 MA [id number]) Cardio Equipment Bicycle (Upright) Duration (Minutes) 5 Resistance 8 Seat Position 5 Therapeutic Exercises Supine Exercises Bridges Side bilateral Reps/Minutes 12x5SH SLR Side bilateral Reps/Minutes 2x12 Sidelying Exercises Clamshell Sidelying Exercise Name hip ER Side bilateral Reps/Minutes 2x12 Comments reviewed form, trying to avoid extremes of lumbar lordosis hip abduction Side bilateral Reps/Minutes 2x12 Standing Exercises Hip Ext Side bilateral Reps/Minutes 2x10 Comments cues to avoid ER L>R Hip ABD Standing Exercise Name 1. standing abd 2. lateral band walk Side bilateral Equipment Used yellow band for standing, red band for walking Reps/Minutes 2x10 lunges Standing Exercise Name fwd and lateral Side bilateral Reps/Minutes 2x10 Comments pain with fwd but not lateral mini squat Side bilateral Reps/Minutes x10 Comments cues for pelvic and knee alignment Manual Therapy Treatment Taping R Knee Body Location R knee Treatment Focus stability Type of Tape ktape Skin Inspection intact Comments 2 I strips medial and lateral starting from tib tuberosity - 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 PT-OP-R Modalities Start: 11/17/21 08:14 Freq: Status: Active Protocol: Document 01/12/22 15:52 MA (Rec: 01/12/22 16:49 MA [id number]) Hot Pack/Cold Pack Treatment Ice Massage Location R medial Knee Patient Position Supine Treatment Duration (minutes) 5 Patient Tolerance Good Comments Instructed pt to perform at home as needed for swelling PT-OP-T Assessment and Plan Start: 11/17/21 08:14 Freq: Status: Active Protocol: Document 01/19/22 16:55 MA (Rec: 01/19/22 17:36 MA [id number]) Physical Therapy Assessment Goals Three Impairment HEP Short Term Goal (STG) Esme will be independent and consistent with a HEP to reduce her knee pain. STG Duration 4 weeks Alf Goal (LTG) Esme will return to her gym workout of running and squatting with resistance without an increase in knee pain. LTG Duration 8 weeks Two Impairment Pain Short Term Goal (STG) Esme will ascend and descend a flight of stairs without knee pain. STG Duration 4 weeks Alf Goal (LTG) Esme will run for 1 mile with knee pain of 2/10 or less over smooth terrain. LTG Duration 8 weeks One Impairment Strength Short Term Goal (STG) Esme will improve her knee strength to 5/5 in both flexion and extension. STG Duration 4 weeks Assessment Summary Assessment Pt has pain with fwd lunges today but no pain with lateral lunges or mini squats. She feels more 'popping' now in R knee when exercising in neutral alingment but has less pain overall. She requires heavy cues during standing and SL hip abd to avoid ER. Pt is still waiting to hear back from about MRI for possible meniscal tear. Physical Therapy Plan Frequency and Duration Frequency of Treatment 2x/Week Duration of Treatment 3 months Plan of Care Start Date 11/26/21 Plan of Care End Date 02/24/22 Therapeutic Interventions Therapeutic Interventions Aquatic Therapy,Gait Training, Home Exercise Program,Joint Mobilizations,Manual Therapy, Neuromuscular Re-education, Self-Care/Home Management, Therapeutic Activities, Therapeutic Exercises Modalities Cold Pack/Ice Massage,Electric Stimulation,Hot Packs Next Visit Focus/Plan Next Note Type Treatment Note Next Visit Plan Continue to work on medial knee stability, working on alignment/form with squat, progressing into lunges as tolerated.
--- NOTE | 2022-01-21 08:17 | PT.OTN ---
Current Diagnoses Pain in right knee (01/21/22) Pain in unspecified knee (01/21/22) Physical Therapy Treatment Note PT-OP-A Visit Information Start: 11/17/21 08:14 Freq: Status: Active Protocol: Document 01/21/22 07:30 AMB (Rec: 01/21/22 08:17 AMB [id number]) Out-Patient Physical Therapy Visit Information Visit Information Visit Type Treatment Note Visit Start Time 07:30 Visit Stop Time 08:15 Total Visit Minutes 40 Visit Number 9 Number of IN STORE MARKETER Visits 0 PT-OP-B Current Condition Start: 11/17/21 08:14 Freq: Status: Active Protocol: Document 11/26/21 13:02 AMB (Rec: 11/26/21 13:46 AMB [id number]) Current Condition History of Current Condition Onset Date August 2021 History of Current Condition Pain with Running, stairs, squats after a skiing accident where she fell in August Feels like it could give out, swelling - inside of the knee. Has felt catching in the knee. PT-OP-C Subjective Start: 11/17/21 08:14 Freq: Status: Active Protocol: Document 01/21/22 07:30 AMB (Rec: 01/21/22 08:17 AMB [id number]) OP-PT Subjective Patient Comments Patient Comments Pt has been doing walk runs, but signficantly slower than her baseline. Knee tends to swell up if she pushes her speed. PT-OP-J Posture/Palpation/Skin Start: 11/17/21 08:14 Freq: Status: Active Protocol: Document 11/26/21 13:00 AMB (Rec: 11/26/21 16:08 AMB [id number]) Palpation Assessment Location One Palpation Location R knee Palpation Findings Edema,Tenderness Palpation Details No tenderness laterally over IT band or centrally over patellar tendon, all tenderness at medial tibiofemoral joint line with mild swelling noticable. PT-OP-K Range of Motion Start: 11/17/21 08:14 Freq: Status: Active Protocol: Document 11/26/21 13:00 AMB (Rec: 11/26/21 16:06 AMB [id number]) Knee Goniometric Range of Motion Knee Right Knee ROM WFL Yes Patient Position Supine Comments no pain with OP into full flexion or extension PT-OP-L Special Tests Start: 11/17/21 08:14 Freq: Status: Active Protocol: Document 11/26/21 13:00 AMB (Rec: 11/26/21 16:06 AMB [id number]) Special Tests Knee Special Tests Rehan Test Comments mild pain and pt subjective feel of clicking Patellar Grind Test Test Results - Posterior Draw Test Results - Anterior Draw Test Results - PT-OP-M Strength Start: 11/17/21 08:14 Freq: Status: Active Protocol: Document 11/26/21 13:00 AMB (Rec: 11/26/21 16:06 AMB [id number]) Hip Strength Hip Manual Muscle Testing Right Flexion (L2) 4 Good Extension (S1) 5 Normal Abduction 4 Good Knee Strength Knee Manual Muscle Testing Right Flexion (S2) 5 Normal Extension (L3) 4 Good PT-OP-Q Treatments Start: 11/17/21 08:14 Freq: Status: Active Protocol: Document 01/21/22 07:30 AMB (Rec: 01/21/22 08:17 AMB [id number]) Therapeutic Exercises Standing Exercises Hip Ext Side bilateral Reps/Minutes 2x10 Comments cues to avoid ER L>R Hip ABD Standing Exercise Name 1. standing abd 2. lateral band walk Side bilateral Equipment Used red band both Reps/Minutes 2x10 lunges Standing Exercise Name fwd and lateral Side bilateral Reps/Minutes 2x10 Comments pain with fwd (when R knee back) but not lateral mini squat Side bilateral Reps/Minutes x10 Comments cues for pelvic and knee alignment PT-OP-R Modalities Start: 11/17/21 08:14 Freq: Status: Active Protocol: Document 01/12/22 15:52 MA (Rec: 01/12/22 16:49 MA [id number]) Hot Pack/Cold Pack Treatment Ice Massage Location R medial Knee Patient Position Supine Treatment Duration (minutes) 5 Patient Tolerance Good Comments Instructed pt to perform at home as needed for swelling PT-OP-T Assessment and Plan Start: 11/17/21 08:14 Freq: Status: Active Protocol: Document 01/21/22 07:30 AMB (Rec: 01/21/22 08:17 AMB [id number]) Physical Therapy Assessment Goals Three Impairment HEP Short Term Goal (STG) Esme will be independent and consistent with a HEP to reduce her knee pain. STG Duration 4 weeks Fdc Goal (LTG) Esme will return to her gym workout of running and squatting with resistance without an increase in knee pain. LTG Duration 8 weeks Two Impairment Pain Short Term Goal (STG) Esme will ascend and descend a flight of stairs without knee pain. STG Duration 4 weeks Fdc Goal (LTG) Esme will run for 1 mile with knee pain of 2/10 or less over smooth terrain. LTG Duration 8 weeks One Impairment Strength Short Term Goal (STG) Esme will improve her knee strength to 5/5 in both flexion and extension. STG Duration 4 weeks Assessment Summary Assessment Forward lunges when right leg was back were painful. Pt was able to do squats on uneven surfaces without issues. Single leg sit to stand was challenging and painful after 4 reps. Physical Therapy Plan Next Visit Focus/Plan Next Note Type Treatment Note Next Visit Plan Continue to work on medial knee stability, working on alignment/form with squat, progressing into lunges as tolerated.
--- NOTE | 2022-01-24 16:48 | PT.OTN ---
Current Diagnoses Pain in right knee (01/24/22) Pain in unspecified knee (01/24/22) Physical Therapy Treatment Note PT-OP-A Visit Information Start: 11/17/21 08:14 Freq: Status: Active Protocol: Document 01/24/22 16:04 MA (Rec: 01/24/22 16:48 MA [id number]) Out-Patient Physical Therapy Visit Information Visit Information Visit Type Treatment Note Visit Start Time 16:03 Visit Stop Time 16:45 Total Visit Minutes 42 Visit Number 10 Number of ELECTRON BEAM MACHINE WELDER SETTER Visits 1 PT-OP-B Current Condition Start: 11/17/21 08:14 Freq: Status: Active Protocol: Document 11/26/21 13:02 AMB (Rec: 11/26/21 13:46 AMB [id number]) Current Condition History of Current Condition Onset Date August 2021 History of Current Condition Pain with Running, stairs, squats after a skiing accident where she fell in August Feels like it could give out, swelling - inside of the knee. Has felt catching in the knee. PT-OP-C Subjective Start: 11/17/21 08:14 Freq: Status: Active Protocol: Document 01/24/22 16:04 MA (Rec: 01/24/22 16:48 MA [id number]) OP-PT Subjective Patient Comments Patient Comments Pt ran 5 laps on the track this morning so her knee is a little more sore today. PT-OP-J Posture/Palpation/Skin Start: 11/17/21 08:14 Freq: Status: Active Protocol: Document 11/26/21 13:00 AMB (Rec: 11/26/21 16:08 AMB [id number]) Palpation Assessment Location One Palpation Location R knee Palpation Findings Edema,Tenderness Palpation Details No tenderness laterally over IT band or centrally over patellar tendon, all tenderness at medial tibiofemoral joint line with mild swelling noticable. PT-OP-K Range of Motion Start: 11/17/21 08:14 Freq: Status: Active Protocol: Document 11/26/21 13:00 AMB (Rec: 11/26/21 16:06 AMB [id number]) Knee Goniometric Range of Motion Knee Right Knee ROM WFL Yes Patient Position Supine Comments no pain with OP into full flexion or extension PT-OP-L Special Tests Start: 11/17/21 08:14 Freq: Status: Active Protocol: Document 11/26/21 13:00 AMB (Rec: 11/26/21 16:06 AMB [id number]) Special Tests Knee Special Tests Rehan Test Comments mild pain and pt subjective feel of clicking Patellar Grind Test Test Results - Posterior Draw Test Results - Anterior Draw Test Results - PT-OP-M Strength Start: 11/17/21 08:14 Freq: Status: Active Protocol: Document 11/26/21 13:00 AMB (Rec: 11/26/21 16:06 AMB [id number]) Hip Strength Hip Manual Muscle Testing Right Flexion (L2) 4 Good Extension (S1) 5 Normal Abduction 4 Good Knee Strength Knee Manual Muscle Testing Right Flexion (S2) 5 Normal Extension (L3) 4 Good PT-OP-Q Treatments Start: 11/17/21 08:14 Freq: Status: Active Protocol: Document 01/24/22 16:04 MA (Rec: 01/24/22 16:48 MA [id number]) Cardio Equipment Bicycle (Upright) Duration (Minutes) 5 Resistance 10 Seat Position 5 Therapeutic Exercises Supine Exercises Bridges Side bilateral Equipment Used lvl 2 TB Reps/Minutes 12x5SH SLR Side bilateral Reps/Minutes 2x12 Sidelying Exercises Clamshell Sidelying Exercise Name hip ER Side bilateral Equipment Used lvl 2 TB Reps/Minutes 2x12 Comments reviewed form, trying to avoid extremes of lumbar lordosis Standing Exercises Hip Ext Side bilateral Equipment Used lvl 2 TB Reps/Minutes 2x10 Comments added to HEP Hip ABD Standing Exercise Name 1. standing abd 2. lateral band walk Side bilateral Equipment Used lvl 2 TB Reps/Minutes 2x10 Comments added to HEP lunges Standing Exercise Name fwd and lateral Side bilateral Reps/Minutes 2x10 Comments pain with fwd (when R knee back) but not lateral Manual Therapy Treatment Taping R Knee Body Location R knee Treatment Focus stability Type of Tape ktape Skin Inspection intact Comments 2 I strips medial and lateral starting from tib tuberosity - 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 Self-Care/Home Management Treatment Education Patient Education Home Exercise Program Other Education Added standing hip abd and ext to HEP along with lateral band walks. Educated pt on wearing band above knees if it causes pain around ankles. Encouraged pt to try wearing brace when running during physical training at work. PT-OP-R Modalities Start: 11/17/21 08:14 Freq: Status: Active Protocol: Document 01/12/22 15:52 MA (Rec: 01/12/22 16:49 MA [id number]) Hot Pack/Cold Pack Treatment Ice Massage Location R medial Knee Patient Position Supine Treatment Duration (minutes) 5 Patient Tolerance Good Comments Instructed pt to perform at home as needed for swelling PT-OP-T Assessment and Plan Start: 11/17/21 08:14 Freq: Status: Active Protocol: Document 01/24/22 16:04 MA (Rec: 01/24/22 16:48 MA [id number]) Physical Therapy Assessment Goals Three Impairment HEP Short Term Goal (STG) Esme will be independent and consistent with a HEP to reduce her knee pain. STG Duration 4 weeks Chcf Goal (LTG) Esme will return to her gym workout of running and squatting with resistance without an increase in knee pain. LTG Duration 8 weeks Two Impairment Pain Short Term Goal (STG) Esme will ascend and descend a flight of stairs without knee pain. STG Duration 4 weeks Metal Can Inspector Goal (LTG) Esme will run for 1 mile with knee pain of 2/10 or less over smooth terrain. LTG Duration 8 weeks One Impairment Strength Short Term Goal (STG) Esme will improve her knee strength to 5/5 in both flexion and extension. STG Duration 4 weeks Assessment Summary Assessment Pt is still waiting to hear back about referral for R knee MRI. She has knee pain only when RLE is back in lunge position. Able to progress to resisted bridges, clamshells and standing hip ext/abd today . Added standing hip abduction and extension along with lateral band walks to HEP. Educated pt on progressing to using resistance during hip ext/abd at home and to d/c resistance if pt feels any pain in R knee. Physical Therapy Plan Frequency and Duration Frequency of Treatment 2x/Week Duration of Treatment 3 months Plan of Care Start Date 11/26/21 Plan of Care End Date 02/24/22 Therapeutic Interventions Therapeutic Interventions Aquatic Therapy,Gait Training, Home Exercise Program,Joint Mobilizations,Manual Therapy, Neuromuscular Re-education, Self-Care/Home Management, Therapeutic Activities, Therapeutic Exercises Modalities Cold Pack/Ice Massage,Electric Stimulation,Hot Packs Next Visit Focus/Plan Next Note Type Treatment Note Next Visit Plan Assess how running with brace felt at work and how HEP with resistance went at home. Continue to work on medial knee stability, working on alignment/form with squat, progressing into lunges as tolerated.
--- NOTE | 2022-01-26 16:24 | PT.OTN ---
Current Diagnoses Pain in right knee (01/26/22) Pain in unspecified knee (01/26/22) Physical Therapy Treatment Note PT-OP-A Visit Information Start: 11/17/21 08:14 Freq: Status: Active Protocol: Document 01/26/22 07:30 AMB (Rec: 01/26/22 16:24 AMB [id number]) Out-Patient Physical Therapy Visit Information Visit Information Visit Type Treatment Note Visit Start Time 07:30 Visit Stop Time 08:15 Total Visit Minutes 45 Visit Number 11 PT-OP-B Current Condition Start: 11/17/21 08:14 Freq: Status: Active Protocol: Document 11/26/21 13:02 AMB (Rec: 11/26/21 13:46 AMB [id number]) Current Condition History of Current Condition Onset Date August 2021 History of Current Condition Pain with Running, stairs, squats after a skiing accident where she fell in August Feels like it could give out, swelling - inside of the knee. Has felt catching in the knee. PT-OP-C Subjective Start: 11/17/21 08:14 Freq: Status: Active Protocol: Document 01/26/22 07:30 AMB (Rec: 01/26/22 16:24 AMB [id number]) OP-PT Subjective Patient Comments Patient Comments Pt has not used knee brace, but also hasn't been running, has been noticing increased stiffness since Monday. PT-OP-J Posture/Palpation/Skin Start: 11/17/21 08:14 Freq: Status: Active Protocol: Document 11/26/21 13:00 AMB (Rec: 11/26/21 16:08 AMB [id number]) Palpation Assessment Location One Palpation Location R knee Palpation Findings Edema,Tenderness Palpation Details No tenderness laterally over IT band or centrally over patellar tendon, all tenderness at medial tibiofemoral joint line with mild swelling noticable. PT-OP-K Range of Motion Start: 11/17/21 08:14 Freq: Status: Active Protocol: Document 11/26/21 13:00 AMB (Rec: 11/26/21 16:06 AMB [id number]) Knee Goniometric Range of Motion Knee Right Knee ROM WFL Yes Patient Position Supine Comments no pain with OP into full flexion or extension PT-OP-L Special Tests Start: 11/17/21 08:14 Freq: Status: Active Protocol: Document 11/26/21 13:00 AMB (Rec: 11/26/21 16:06 AMB [id number]) Special Tests Knee Special Tests Rehan Test Comments mild pain and pt subjective feel of clicking Patellar Grind Test Test Results - Posterior Draw Test Results - Anterior Draw Test Results - PT-OP-M Strength Start: 11/17/21 08:14 Freq: Status: Active Protocol: Document 11/26/21 13:00 AMB (Rec: 11/26/21 16:06 AMB [id number]) Hip Strength Hip Manual Muscle Testing Right Flexion (L2) 4 Good Extension (S1) 5 Normal Abduction 4 Good Knee Strength Knee Manual Muscle Testing Right Flexion (S2) 5 Normal Extension (L3) 4 Good PT-OP-Q Treatments Start: 11/17/21 08:14 Freq: Status: Active Protocol: Document 01/26/22 07:30 AMB (Rec: 01/26/22 16:24 AMB [id number]) Gym Equipment Shuttle Recovery Bilateral Squats Details hops DL, then SL Resistance 50 Therapeutic Exercises Standing Exercises Hip Ext Side bilateral Equipment Used lvl 2 TB Reps/Minutes 2x10 Comments added to HEP Hip ABD Standing Exercise Name 1. standing abd 2. lateral band walk Side bilateral Equipment Used lvl 2 TB Reps/Minutes 2x10 Comments added to HEP mini squat Side bilateral Reps/Minutes x10 Comments cues for pelvic and knee alignment Manual Therapy Treatment Soft Tissue Mobilization medial knee Body Location R knee Mobilization Type Cross-Friction,Myofascial Release,Strumming Intensity/Depth Moderate Body Position Supine PT-OP-R Modalities Start: 11/17/21 08:14 Freq: Status: Active Protocol: Document 01/12/22 15:52 MA (Rec: 01/12/22 16:49 MA [id number]) Hot Pack/Cold Pack Treatment Ice Massage Location R medial Knee Patient Position Supine Treatment Duration (minutes) 5 Patient Tolerance Good Comments Instructed pt to perform at home as needed for swelling PT-OP-T Assessment and Plan Start: 11/17/21 08:14 Freq: Status: Active Protocol: Document 01/26/22 07:30 AMB (Rec: 01/26/22 16:24 AMB [id number]) Physical Therapy Assessment Assessment Summary Assessment New resistance exercises went well. Reminded pt to avoid cutting exercises, still need to work on lateral movements before running/cutting. Can consider more plyos if pt sx allow, as pt did ok with shuttle recovery. Physical Therapy Plan Next Visit Focus/Plan Next Note Type Treatment Note Next Visit Plan Running with brace? Progress lateral movements/gentle hops.
--- NOTE | 2022-01-31 15:37 | PT.OTN ---
Current Diagnoses Pain in right knee (01/31/22) Pain in unspecified knee (01/31/22) Physical Therapy Treatment Note PT-OP-A Visit Information Start: 11/17/21 08:14 Freq: Status: Active Protocol: Document 01/31/22 14:31 AMB (Rec: 01/31/22 15:32 AMB [id number]) Out-Patient Physical Therapy Visit Information Visit Information Visit Type Treatment Note Visit Start Time 07:30 Visit Stop Time 08:15 Total Visit Minutes 45 Visit Number 12 PT-OP-B Current Condition Start: 11/17/21 08:14 Freq: Status: Active Protocol: Document 11/26/21 13:02 AMB (Rec: 11/26/21 13:46 AMB [id number]) Current Condition History of Current Condition Onset Date August 2021 History of Current Condition Pain with Running, stairs, squats after a skiing accident where she fell in August Feels like it could give out, swelling - inside of the knee. Has felt catching in the knee. PT-OP-C Subjective Start: 11/17/21 08:14 Freq: Status: Active Protocol: Document 01/31/22 14:31 AMB (Rec: 01/31/22 15:32 AMB [id number]) OP-PT Subjective Patient Comments Patient Comments Pt did go on a run (slower pace) and it went ok. PT-OP-J Posture/Palpation/Skin Start: 11/17/21 08:14 Freq: Status: Active Protocol: Document 11/26/21 13:00 AMB (Rec: 11/26/21 16:08 AMB [id number]) Palpation Assessment Location One Palpation Location R knee Palpation Findings Edema,Tenderness Palpation Details No tenderness laterally over IT band or centrally over patellar tendon, all tenderness at medial tibiofemoral joint line with mild swelling noticable. PT-OP-K Range of Motion Start: 11/17/21 08:14 Freq: Status: Active Protocol: Document 11/26/21 13:00 AMB (Rec: 11/26/21 16:06 AMB [id number]) Knee Goniometric Range of Motion Knee Right Knee ROM WFL Yes Patient Position Supine Comments no pain with OP into full flexion or extension PT-OP-L Special Tests Start: 11/17/21 08:14 Freq: Status: Active Protocol: Document 11/26/21 13:00 AMB (Rec: 11/26/21 16:06 AMB [id number]) Special Tests Knee Special Tests Rehan Test Comments mild pain and pt subjective feel of clicking Patellar Grind Test Test Results - Posterior Draw Test Results - Anterior Draw Test Results - PT-OP-M Strength Start: 11/17/21 08:14 Freq: Status: Active Protocol: Document 11/26/21 13:00 AMB (Rec: 11/26/21 16:06 AMB [id number]) Hip Strength Hip Manual Muscle Testing Right Flexion (L2) 4 Good Extension (S1) 5 Normal Abduction 4 Good Knee Strength Knee Manual Muscle Testing Right Flexion (S2) 5 Normal Extension (L3) 4 Good PT-OP-Q Treatments Start: 11/17/21 08:14 Freq: Status: Active Protocol: Document 01/31/22 14:31 AMB (Rec: 01/31/22 15:32 AMB [id number]) Gym Equipment Shuttle Recovery Bilateral Squats Details hops DL, then SL Resistance 50 Shuttle Balance RED Details squats Comments a/p and m/l-- challenging Therapeutic Exercises Supine Exercises Hamstring Stretch Side bilateral Reps/Minutes 1 x 30 sec ea Bridges Side bilateral Equipment Used lvl 2 TB Reps/Minutes 12x5SH SLR Side bilateral Reps/Minutes 2x12 Standing Exercises single leg sit to stand Reps/Minutes 4 Comments painful Manual Therapy Treatment Soft Tissue Mobilization medial knee Body Location R knee Mobilization Type Cross-Friction,Myofascial Release,Strumming Intensity/Depth Moderate Body Position Supine PT-OP-R Modalities Start: 11/17/21 08:14 Freq: Status: Active Protocol: Document 01/12/22 15:52 MA (Rec: 01/12/22 16:49 MA [id number]) Hot Pack/Cold Pack Treatment Ice Massage Location R medial Knee Patient Position Supine Treatment Duration (minutes) 5 Patient Tolerance Good Comments Instructed pt to perform at home as needed for swelling PT-OP-T Assessment and Plan Start: 11/17/21 08:14 Freq: Status: Active Protocol: Document 01/31/22 14:31 AMB (Rec: 01/31/22 15:32 AMB [id number]) Physical Therapy Assessment Goals Three Impairment HEP Short Term Goal (STG) Esme will be independent and consistent with a HEP to reduce her knee pain. STG Duration 4 weeks Longterm Goal (LTG) Esme will return to her gym workout of running and squatting with resistance without an increase in knee pain. LTG Duration 8 weeks Two Impairment Pain Short Term Goal (STG) Esme will ascend and descend a flight of stairs without knee pain. STG Duration =MET Longterm Goal (LTG) Esme will run for 1 mile with knee pain of 2/10 or less over smooth terrain. LTG Duration MET One Impairment Strength Short Term Goal (STG) Esme will improve her knee strength to 5/5 in both flexion and extension. STG Duration 4 weeks Assessment Summary Assessment Esme has met almost half of her goals, however hopping exercises continue to cause pain. Continues to have difficulty with cutting/ jumping. Seeing MD on Monday. Concerned about length of time it has been since injury and continued pain with single leg squats, jumping, cutting activities. Physical Therapy Plan Next Visit Focus/Plan Next Note Type Treatment Note Next Visit Plan Progress lateral movements as tolerated
--- NOTE | 2022-02-02 09:43 | PT.OTN ---
Current Diagnoses Pain in right knee (02/02/22) Pain in unspecified knee (02/02/22) Physical Therapy Treatment Note PT-OP-A Visit Information Start: 11/17/21 08:14 Freq: Status: Active Protocol: Document 02/02/22 07:56 AMB (Rec: 02/02/22 08:18 AMB [id number]) Out-Patient Physical Therapy Visit Information Visit Information Visit Type Treatment Note Visit Start Time 07:30 Visit Stop Time 08:15 Total Visit Minutes 45 Visit Number 13 PT-OP-B Current Condition Start: 11/17/21 08:14 Freq: Status: Active Protocol: Document 11/26/21 13:02 AMB (Rec: 11/26/21 13:46 AMB [id number]) Current Condition History of Current Condition Onset Date August 2021 History of Current Condition Pain with Running, stairs, squats after a skiing accident where she fell in August Feels like it could give out, swelling - inside of the knee. Has felt catching in the knee. PT-OP-C Subjective Start: 11/17/21 08:14 Freq: Status: Active Protocol: Document 02/02/22 07:56 AMB (Rec: 02/02/22 08:18 AMB [id number]) OP-PT Subjective Patient Comments Patient Comments Pt went on a walk on Monday and Monday felt knee was tight and stiff the whole day. PT-OP-J Posture/Palpation/Skin Start: 11/17/21 08:14 Freq: Status: Active Protocol: Document 11/26/21 13:00 AMB (Rec: 11/26/21 16:08 AMB [id number]) Palpation Assessment Location One Palpation Location R knee Palpation Findings Edema,Tenderness Palpation Details No tenderness laterally over IT band or centrally over patellar tendon, all tenderness at medial tibiofemoral joint line with mild swelling noticable. PT-OP-K Range of Motion Start: 11/17/21 08:14 Freq: Status: Active Protocol: Document 11/26/21 13:00 AMB (Rec: 11/26/21 16:06 AMB [id number]) Knee Goniometric Range of Motion Knee Right Knee ROM WFL Yes Patient Position Supine Comments no pain with OP into full flexion or extension PT-OP-L Special Tests Start: 11/17/21 08:14 Freq: Status: Active Protocol: Document 11/26/21 13:00 AMB (Rec: 11/26/21 16:06 AMB [id number]) Special Tests Knee Special Tests Rehan Test Comments mild pain and pt subjective feel of clicking Patellar Grind Test Test Results - Posterior Draw Test Results - Anterior Draw Test Results - PT-OP-M Strength Start: 11/17/21 08:14 Freq: Status: Active Protocol: Document 11/26/21 13:00 AMB (Rec: 11/26/21 16:06 AMB [id number]) Hip Strength Hip Manual Muscle Testing Right Flexion (L2) 4 Good Extension (S1) 5 Normal Abduction 4 Good Knee Strength Knee Manual Muscle Testing Right Flexion (S2) 5 Normal Extension (L3) 4 Good PT-OP-Q Treatments Start: 11/17/21 08:14 Freq: Status: Active Protocol: Document 02/02/22 07:56 AMB (Rec: 02/02/22 08:18 AMB [id number]) Gym Equipment Shuttle Recovery Bilateral Squats Details hops DL, then SL Resistance 50 Reps/Time 3x12 Therapeutic Exercises Supine Exercises Hamstring Stretch Side bilateral Reps/Minutes 1 x 30 sec ea Stretch Supine Exercise Name Supine and seated Side bilateral Reps/Minutes x30 sec ea Comments pain felt when supine, no pain in seated Sidelying Exercises hip abduction Side bilateral Reps/Minutes 2x12 Standing Exercises Hip ABD Standing Exercise Name 1. standing abd 2. lateral band walk Side bilateral Equipment Used lvl 2 TB Reps/Minutes 2x10 Comments added to HEP Manual Therapy Treatment Soft Tissue Mobilization medial knee Body Location R knee Mobilization Type Cross-Friction,Myofascial Release,Strumming Intensity/Depth Moderate Body Position Supine PT-OP-R Modalities Start: 11/17/21 08:14 Freq: Status: Active Protocol: Document 01/12/22 15:52 MA (Rec: 01/12/22 16:49 MA [id number]) Hot Pack/Cold Pack Treatment Ice Massage Location R medial Knee Patient Position Supine Treatment Duration (minutes) 5 Patient Tolerance Good Comments Instructed pt to perform at home as needed for swelling PT-OP-T Assessment and Plan Start: 11/17/21 08:14 Freq: Status: Active Protocol: Document 02/02/22 07:56 AMB (Rec: 02/02/22 08:18 AMB [id number]) Physical Therapy Assessment Goals Three Impairment HEP Short Term Goal (STG) Esme will be independent and consistent with a HEP to reduce her knee pain. STG Duration 4 weeks Supervisor [employer] Goal (LTG) Esme will return to her gym workout of running and squatting with resistance without an increase in knee pain. LTG Duration 8 weeks Two Impairment Pain Short Term Goal (STG) Esme will ascend and descend a flight of stairs without knee pain. STG Duration =MET Intermediate Goal (LTG) Esme will run for 1 mile with knee pain of 2/10 or less over smooth terrain. LTG Duration MET One Impairment Strength Short Term Goal (STG) Esme will improve her knee strength to 5/5 in both flexion and extension. STG Duration 4 weeks Assessment Summary Assessment Double leg jumping didn't necessarily cause pain but pt doesn't trust the leg and tends to off load when she lands. Single leg still painful. Physical Therapy Plan Next Visit Focus/Plan Next Note Type Treatment Note Next Visit Plan Progress lateral movements as tolerated
--- NOTE | 2022-03-25 08:17 | PT.OPDS ---
Current Diagnoses Pain in right knee (02/02/22) Pain in unspecified knee (02/02/22) Visit Care Team Role Provider Type Willa Starr MD Attending Provider Non-Staff Family Provider Primary Care Provider Referring Provider Specialty: Medical Address: [address] [place] [address], [facility] Email: Visit Number Visit Number 13 Discharge Summary PT-OP-B Current Condition Start: 11/17/21 08:14 Freq: Status: Active Protocol: Document 11/26/21 13:02 AMB (Rec: 11/26/21 13:46 AMB [id number]) Current Condition History of Current Condition Onset Date August 2021 History of Current Condition Pain with Running, stairs, squats after a skiing accident where she fell in August Feels like it could give out, swelling - inside of the knee. Has felt catching in the knee. PT-OP-C Subjective Start: 11/17/21 08:14 Freq: Status: Active Protocol: Document 02/02/22 07:56 AMB (Rec: 02/02/22 08:18 AMB [id number]) OP-PT Subjective Patient Comments Patient Comments Pt went on a walk on Monday and Monday felt knee was tight and stiff the whole day. PT-OP-J Posture/Palpation/Skin Start: 11/17/21 08:14 Freq: Status: Active Protocol: Document 11/26/21 13:00 AMB (Rec: 11/26/21 16:08 AMB [id number]) Palpation Assessment Location One Palpation Location R knee Palpation Findings Edema,Tenderness Palpation Details No tenderness laterally over IT band or centrally over patellar tendon, all tenderness at medial tibiofemoral joint line with mild swelling noticable. PT-OP-K Range of Motion Start: 11/17/21 08:14 Freq: Status: Active Protocol: Document 11/26/21 13:00 AMB (Rec: 11/26/21 16:06 AMB [id number]) Knee Goniometric Range of Motion Knee Right Knee ROM WFL Yes Patient Position Supine Comments no pain with OP into full flexion or extension PT-OP-L Special Tests Start: 11/17/21 08:14 Freq: Status: Active Protocol: Document 11/26/21 13:00 AMB (Rec: 11/26/21 16:06 AMB [id number]) Special Tests Knee Special Tests Rehan Test Comments mild pain and pt subjective feel of clicking Patellar Grind Test Test Results - Posterior Draw Test Results - Anterior Draw Test Results - PT-OP-M Strength Start: 11/17/21 08:14 Freq: Status: Active Protocol: Document 11/26/21 13:00 AMB (Rec: 11/26/21 16:06 AMB [id number]) Hip Strength Hip Manual Muscle Testing Right Flexion (L2) 4 Good Extension (S1) 5 Normal Abduction 4 Good Knee Strength Knee Manual Muscle Testing Right Flexion (S2) 5 Normal Extension (L3) 4 Good PT-OP-T Assessment and Plan Start: 11/17/21 08:14 Freq: Status: Active Protocol: Document 03/25/22 08:10 AMB (Rec: 03/25/22 08:16 AMB [id number]) Physical Therapy Assessment Goals Three Impairment HEP Short Term Goal (STG) Esme will be independent and consistent with a HEP to reduce her knee pain. STG Duration 4 weeks Archivist Economic History Goal (LTG) Esme will return to her gym workout of running and squatting with resistance without an increase in knee pain. LTG Duration 8 weeks Two Impairment Pain Short Term Goal (STG) Esme will ascend and descend a flight of stairs without knee pain. STG Duration =MET Archivist Economic History Goal (LTG) Esme will run for 1 mile with knee pain of 2/10 or less over smooth terrain. LTG Duration MET One Impairment Strength Short Term Goal (STG) Esme will improve her knee strength to 5/5 in both flexion and extension. STG Duration 4 weeks Assessment Summary Assessment Esme was last seen 2 months ago and wanted to follow up with MD re imaging given that single leg jumping remained painful. She was able to jog, but not really sprint and her knee pain continued to impair her ability to return to her full level of athletic participation. She has not scheduled any furhter appointments therefore she is discharged at this time.
== END 2022-03-30 14:42 ==
LOC: PHYS 07:30
PROVIDERS: Family Provider Internal Medicine; PCP Internal Medicine; Referring Provider Internal Medicine; Visit Provider Internal Medicine
DX: M25.561 Pain in right knee (principal); M25.569 Pain in unspecified knee
CPT/HCPCS: 97110; 97140; 97161